=== PATIENT | male | born 1965 | race Hispanic/Latino ===

== ENCOUNTER 2018-06-25 11:44 | Emergency (ER) | payer OTHER ==
[2018-06-25] MEDS ORDERED: Sodium Chloride 0.9% 10 ML Syringe FLUSH PRN (11:49)
[2018-06-25] MEDS ORDERED: Sodium Chloride 0.9% 2.5 ML Syringe FLUSH PRN (11:49)
[2018-06-25] MEDS ORDERED: Sodium Chloride 0.9% 1,000 ML IV ONE (11:50)
[2018-06-25] MEDS ORDERED: Heparin Sodium 5,000 Units/ML Vial IVPUSH ONE (11:56)
[2018-06-25] MEDS ORDERED: Heparin Sodium 5,000 Units/ML Vial ONE (11:57)
[2018-06-25] MEDS ORDERED: Heparin Sod,Pork In 0.45% Nacl 25,000 UNIT/500 ML IV.SOLN IV ONE (11:59)
[2018-06-25] MEDS ORDERED: Heparin Sod,Pork In 0.45% Nacl 25,000 UNIT/500 ML IV.SOLN IV SCH (12:00)
--- NOTE | 2018-06-25 12:01 | EDM.PDOC ---
ED HPI GENERAL MEDICAL PROBLEM - General Chief Complaint: Chest Pain Stated Complaint: HEART ATTACK Time Seen by Provider: 06/25/18 11:50 - History of Present Illness INITIAL COMMENTS - FREE TEXT/NARRATIVE: HISTORY AND PHYSICAL: History of present illness: Patient is 53-year-old white male presents with a concern of substernal chest pain with associated shortness of breath and diaphoresis who had EKG and the clinic with acute ST segment changes in the form of inferior ST elevation with reciprocal depression paramedics presented patient was given nitroglycerin and morphine and on arrival here is pain free with resolution of his ST segment changes. He remains pain-free and hemodynamically stable on arrival here case was discussed with cardiology was excepted the patient requested IV heparin and transfer. Patient to receive aspirin prior to arrival Review of systems: As per history of present illness and below otherwise all systems reviewed and negative. Past medical history: As per history of present illness and as reviewed below otherwise noncontributory. Surgical history: As per history of present illness and as reviewed below otherwise noncontributory. Social history: No reported history of drug or alcohol abuse. Family history: As per history of present illness and as reviewed below otherwise noncontributory. Physical exam: HEENT: Atraumatic, normocephalic, pupils reactive, negative for conjunctival pallor or scleral icterus, mucous membranes moist, throat clear, neck supple, nontender, trachea midline. Lungs: Clear to auscultation, breath sounds equal bilaterally, chest nontender. Heart: S1S2, regular, negative for clicks, rubs, or JVD. Abdomen: Soft, nondistended, nontender. Negative for masses or hepatosplenomegaly. Negative for costovertebral tenderness. Pelvis: Stable nontender. Genitourinary: Deferred. Rectal: Deferred. Extremities: Atraumatic, negative for cords or calf pain. Neurovascular unremarkable. Neuro: Awake, alert, oriented. Cranial nerves II through XII unremarkable. Cerebellum unremarkable. Motor and sensory unremarkable throughout. Exam nonfocal. Diagnostics: CBC CMP troponin PT/INR chest x-ray EKG Therapeutics: IV O2 monitor IV heparin Impression: #1 acute coronary syndrome Definitive disposition and diagnosis as appropriate pending reevaluation and review of above. Treatments RUG CLIPPER: Reports: Aspirin, EKG, IV/IO, Nitroglycerin, Oxygen, Other (see below) Other Treatments RUG CLIPPER: morphine & zofran - Related Data Allergies Allergy/AdvReac Type Severity Reaction Status Date / Time No Known Allergies Allergy Verified 06/25/18 11:49 Home Meds: Home Meds . [No Known Home Meds] 06/25/18 [History] Past Medical History Respiratory History: Reports: Other (See Below) Other Respiratory History: Nodules on L lung Genitourinary History: Reports: Renal Calculus Oncologic (Cancer) History: Reports: Prostate - Infectious Disease History Infectious Disease History: Reports: Chicken Pox, Measles, Mumps - Past Surgical History GI Surgical History: Reports: Appendectomy Male Surgical History: Reports: Prostatectomy Musculoskeletal Surgical History: Reports: Arthroscopic Knee Social & Family History - Family History Cardiac: Reports: CAD Endocrine/Metabolic: Reports: Diabetes, Type I Oncologic: Reports: Brain - Tobacco Use Smoking Status *Q: Current Every Day Smoker Years of Tobacco use: 40 Packs/Tins Daily: 1 - Caffeine Use Caffeine Use: Reports: Coffee - Recreational Drug Use Recreational Drug Use: No ED ROS GENERAL - Review of Systems Review Of Systems: ROS reveals no pertinent complaints other than HPI. ED EXAM, GENERAL - Physical Exam Exam: See Below (See dictation) Course - Vital Signs Last Recorded V/S: Last Vital Signs Temp 36.4 C 06/25/18 11:47 Pulse 54 L 06/25/18 11:56 Resp 14 06/25/18 11:56 BP 105/66 06/25/18 11:56 Pulse Ox 99 06/25/18 11:56 - Orders/Labs/Meds Orders: Active Orders 24 hr Category Date Time Status EKG Documentation Completion [RC] STAT Care 06/25/18 11:49 Active Chest 1V Frontal [CR] Stat Exams 06/25/18 11:49 Ordered CBC WITH AUTO DIFF [HEME] Stat Lab 06/25/18 11:49 Ordered COMPREHENSIVE METABOLIC PN,CMP [CHEM] Stat Lab 06/25/18 11:49 Ordered INR,PT,PROTHROMBIN TIME [COAG] Stat Lab 06/25/18 11:50 Ordered TROPONIN I [CHEM] Stat Lab 06/25/18 11:49 Ordered Heparin Sod,Pork In 0.45% Nacl [Heparin-1/2Ns 25,000 Med 06/25/18 12:00 Active Units/500] 25,000 unit in 500 ml IV TITRATE Sodium Chloride 0.9% [Normal Saline] 1,000 ml Med 06/25/18 11:50 Active IV STAT Sodium Chloride 0.9% [Saline Flush] Med 06/25/18 11:49 Active 10 ml FLUSH ASDIRECTED PRN Sodium Chloride 0.9% [Saline Flush] Med 06/25/18 11:49 Active 2.5 ml FLUSH ASDIRECTED PRN Saline Lock Insert [OM.PC] Stat Oth 06/25/18 11:49 Ordered Medication Orders Sodium Chloride (Normal Saline) 1,000 mls @ 999 mls/hr IV STAT ONE Stop: 06/25/18 12:50 Last Admin: 06/25/18 11:58 Dose: 999 mls/hr Heparin Sodium/Sodium Chloride (Heparin-1/2ns 25,000 Units/500) 25,000 unit in 500 mls @ 20.684 mls/hr IV TITRATE VELASQUEZ; Protocol Sodium Chloride (Saline Flush) 10 ml FLUSH ASDIRECTED PRN PRN Reason: Keep Vein Open Sodium Chloride (Saline Flush) 2.5 ml FLUSH ASDIRECTED PRN PRN Reason: Keep Vein Open Meds: Medications Generic Name Dose Route Start Last Admin Trade Name Freq PRN Reason Stop Dose Admin Sodium Chloride 1,000 mls @ 999 mls/hr 06/25/18 11:50 06/25/18 11:58 Normal Saline IV 06/25/18 12:50 999 mls/hr STAT ONE Administration Heparin Sodium/Sodium Chloride 25,000 unit in 500 mls @ 20.684 mls/hr 12:00 Heparin-1/2ns 25,000 Units/500 IV TITRATE VELASQUEZ Protocol 12 UNITS/KG/HR Sodium Chloride 10 ml 06/25/18 11:49 Saline Flush FLUSH ASDIRECTED PRN Keep Vein Open Sodium Chloride 2.5 ml 06/25/18 11:49 Saline Flush FLUSH ASDIRECTED PRN Keep Vein Open Discontinued Medications Generic Name Dose Route Start Last Admin Trade Name Freq PRN Reason Stop Dose Admin Heparin Sodium (Porcine) 8,000 units 06/25/18 11:56 Heparin Sodium IVPUSH 06/25/18 11:57 .BOLUS ONE Departure - Departure Time of Disposition: 12:01 Disposition: DC/Tfer to Acute Hospital 02 Condition: Serious Clinical Impression: Acute coronary syndrome - Discharge Information
--- NOTE | 2018-06-25 12:30 | CR ---
EXAMINATION: Portable chest radiograph. HISTORY: Chest pain. FINDINGS: The trachea is midline. The cardiomediastinal silhouette is within normal limits. No pulmonary infiltrates, effusions or pneumothorax. Osseous structures appear unremarkable. IMPRESSION: No acute cardiopulmonary process.
[2018-06-25 12:45] LABS: CHLORIDE,CL 106 mmol/L (98-107); SODIUM,NA 141 mmol/L (136-148)
== END 2018-06-25 12:17 ==
LOC: MW.ED 11:44
DX: I24.9 Acute ischemic heart disease, unspecified (principal); F17.210 Nicotine dependence, cigarettes, uncomplicated
CPT/HCPCS: 36415; 71045; 80053; 84484; 85025; 85610; 93005; J1644; J7040; 96374; 96376; 99285-25